=== PATIENT | male | born 1960 | race Caucasian/White ===

== ENCOUNTER 2021-08-07 07:13 | Emergency (ER) | payer OTHER ==
[2021-08-07] MEDS ORDERED: Sodium Chloride 0.9% 10 ML Syringe FLUSH PRN (07:19)
[2021-08-07] MEDS ORDERED: Sodium Chloride 0.9% 1,000 ML IV ONE ×2 (07:24→08:18)
[2021-08-07] MEDS ORDERED: Pantoprazole 40 MG Vial IVPUSH ONE (07:52)
[2021-08-07] MEDS ORDERED: Pantoprazole 40 MG in Sodium Chloride 0.9% 100 ML IV SCH (07:56)
[2021-08-07 08:02] LABS: ANION GAP 14.7 mEq/L (7-13); CHLORIDE,CL 102 mmol/L (98-107); SODIUM,NA 139 mmol/L (136-145)
[2021-08-07] MEDS ORDERED: Octreotide 100 MCG in Sodium Chloride 0.9% 99 ML IV SCH (08:30)
== END 2021-08-07 09:18 ==
LOC: DL.ED 07:13
DX: K92.2 Gastrointestinal hemorrhage, unspecified (principal); I10 Essential (primary) hypertension; Z20.822 Contact with and (suspected) exposure to COVID-19; Z79.899 Other long term (current) drug therapy
CPT/HCPCS: 36415; 80053; 82272; 83605; 83735; 84484; 85025; 85610; 86140; 86850; 86900; 86901; 93005; 93010; 96365; 96368; 96376; 99284; 99285-25; C9113; J2354-JA; J3490; J7030; U0002

== ENCOUNTER 2022-07-21 00:53 | Emergency (ER) | payer OTHER ==
[2022-07-21] MEDS ORDERED: Lidocaine 1% with EPINEPHrine 1:100,000 20 ML MDV INJECT ONE (01:10)
== END 2022-07-21 02:14 | disposition home or self-care (01) ==
LOC: DL.ED 00:53
DX: S01.01XA Laceration without foreign body of scalp, initial encounter (principal); I10 Essential (primary) hypertension; W01.198A Fall on same level from slipping, tripping and stumbling with subsequent striking against other object, initial encounter; Z79.899 Other long term (current) drug therapy; Z87.891 Personal history of nicotine dependence
CPT/HCPCS: 12002; 99282; J3490